=== PATIENT | female | born 1950 | race Caucasian/White ===

== ENCOUNTER → 2017-03-01 | Outpatient (CLI) | payer MEDICARE, OTHER ==
[~2017-03-01] MED LIST: ALPR0.5T PO; ASPI-482 PO; CLOP75TA57 PO; DICL100G18 TP; DOXE10CA PO; DULO60CA6 PO; FLUO20CA16 PO; FURO-69 PO; GABA-586 PO; GEMF600T PO; LIPITOR80 MG PO; METH2.5T PO; METO50TA2 PO; MONT10TA6 PO; NITR0.4T22 SL; POTA20TA12 PO
--- NOTE | 2017-03-01 17:12 | KCIC ---
MRI of the lumbar spine without contrast 03/01/2017 CLINICAL HISTORY: Low back pain which radiates down the right leg. TECHNIQUE: Unenhanced T1-weighted and T2-weighted sagittal and axial and inversion recovery sagittal images of the lumbar spine were obtained. FINDINGS: Comparison study is dated 05/29/2014. Minimal S-shaped curvature of the thoracolumbar spine is seen. Mild anterolisthesis of L3 in relation L4 is noted. Degenerative signal changes are seen involving all the disks of the lumbar spine. Degenerative signal changes are seen within the marrow surrounding these discs. Marked loss of height of the L4-5 disc is noted. The conus medullaris is normal in morphology, position, and signal characteristics. At the L1-2 and L2-3 disc spaces there are minimal to mild generalized disc bulges. Degenerative changes are seen involving the facet joints bilaterally. There is mild ligamentum flavum hypertrophy bilaterally. These findings do not result in significant central spinal canal or neural foraminal stenosis. At the L3-4 disc space there is a mild to moderate generalized disc bulge. This is eccentric to the left. Degenerative changes are seen involving the facet joints bilaterally. There is mild to moderate ligamentum flavum hypertrophy bilaterally. There is prominence of the posterior epidural fat. These findings when combined result in mild central spinal canal stenosis. No neural foraminal stenosis is seen. At the L4-5 disc space there is a mild generalized disc bulge. This is eccentric to the right. Degenerative changes are seen involving the facet joints bilaterally. There is mild ligamentum flavum hypertrophy bilaterally. These findings when combined do not result in significant central spinal canal stenosis. Mild right neural foraminal stenosis is seen. The left neural foramen is patent. At the L5-S1 disc space there is a mild generalized disc bulge. Degenerative changes are seen involving the facet joints bilaterally. There is mild ligamentum flavum hypertrophy bilaterally. These findings when combined do not result in significant central spinal canal or neural foraminal stenosis. Since the previous examination there has been no significant interval change. IMPRESSION: The changes of degenerative disc disease are seen throughout the lumbar spine. These findings result in mild central spinal canal stenosis at L3-4. Mild right neural foraminal stenosis is seen at L4-5. Electronically signed by: Murray Dubose MD (03/01/2017 5:09 PM) [facility]
== END | disposition home or self-care (01) ==
LOC: KCIC MRI 14:04
PROVIDERS: ATTEND Family Medicine
DX: M51.36 Other intervertebral disc degeneration, lumbar region (principal); M48.06 Spinal stenosis, lumbar region; M99.53 Intervertebral disc stenosis of neural canal of lumbar region
CPT/HCPCS: 72148

== ENCOUNTER → 2018-08-21 | Outpatient (CLI) | payer MEDICARE, OTHER ==
[~2018-08-21] MED LIST changes: -GABA-586 PO; +GABA300C18 PO; -METO50TA2 PO; +METO50TA6 PO
--- NOTE | 2018-08-21 15:58 | KCIC ---
MR of the left ankle Indication: Pain and difficulty walking at the left ankle. Fell 3 months ago. Lateral and posterior swelling. Generalized pain. Comparison: None are available Technique: Standard multiplanar sequences are obtained. FINDINGS: Artifact: No significant image degradation. Lateral: Peroneal tendons: Intact, no dislocation Lateral collateral ligaments: * Anterior talofibular ligament: Poorly visualized * Calcaneofibular ligament: Poorly seen * Posterior talofibular ligament: Poorly seen Tibiofibular syndesmosis: Anterior inferior tibiofibular ligament is intact. Tibiofibular syndesmosis is intact. Medial: Posterior tibial tendon: Intact Flexor digitorum longus and hallucis tendons: Intact Medial ligaments: Scarring of the deep deltoid ligament fibers. Anterior: Anterior tibial tendon: Intact Extensor hallucis longus tendon: Intact Extensor digitorum longus tendon: Intact Posterior: Achilles tendon: Intact Plantar aponeurosis: Small enthesophyte at the attachment. No acute plantar fasciitis. Subtalar joints: Patent Tarsal sinus: Abnormal replacement of the normal fatty signal with fibrosis and fluid. Subchondral marrow edema at the roof and floor with cysts. Talar Dome: Intact Bones: No significant lesion or acute fracture Fluid: Trace fluid at the tibiotalar joint, and within the subcutaneous talar joint/tarsal sinus. Joints: Generalized primary osteoarthritis. Soft tissues: Unremarkable Impression: 1. Lateral collateral ligaments are poorly seen compatible with chronic tears. 2. Scarring of the deep fibers of the deltoid ligament. 3. Disruption of the tarsal sinus, appears chronic, with reactive changes at the tarsal roof and calcaneal floor. Electronically signed by: Schuyler Canseco MD (08/21/2018 3:54 PM) [facility]
--- NOTE | 2018-08-21 16:36 | KCIC ---
MR of the left knee Indication: Left knee pain after a fall 3 months ago. Swelling. Painful walking. Comparison: None are available. Technique: The standard multiplanar sequences are obtained. FINDINGS: Artifact: No significant image degradation. Medial meniscus:Intact. Lateral meniscus: Degenerative tear, particularly at the anterior horn. Anterior cruciate ligament: Irregular and poorly defined, no definite through and through rupture or displacement however. No Pivot shift bone injuries. Posterior cruciate ligament: Intact Medial collateral ligament: Intact. Lateral structures: * Iliotibial band: Intact. * Lateral collateral ligament: Intact. * Biceps femoris tendon: Intact * Popliteus tendon attachment: Intact Extensive mechanism: * Patellar tendon: Intact * Quadriceps tendon: Intact * Retinacular structures: Intact Fluid: Moderate joint effusion. Small Zaragoza's cyst. Intra-articular bodies: None visualized Joint compartments * patellofemoral joint: Degenerative changes with severe chondromalacia * medial compartment: Severe degenerative changes with full-thickness chondral loss. * lateral compartment: Severe degenerative changes with full-thickness cartilage loss Bones: No significant lesion or acute fracture. Soft tissue: Unremarkable Impression: 1. Lateral meniscal tear. 2. Severe primary osteoarthritis. 3. Anterior cruciate ligament is poorly defined, may be due to degeneration. Tear is considered unlikely, unless there is clinical instability. Electronically signed by: Schuyler Canseco MD (08/21/2018 4:32 PM) [facility]
--- NOTE | 2018-08-21 16:47 | KCIC ---
MR of the left foot HISTORY: Left foot pain, difficulty walking, fell 3 months ago. TECHNIQUE: Routine multiplanar sequences are obtained. FINDINGS: Generalized primary osteoarthritis. Severe primary osteoarthritis at the first MTP joint with hallux valgus. Advanced degenerative changes also seen at the tarsometatarsal joints. No evidence of acute fracture or aggressive bone destruction. The Lisfranc ligament complex components are poorly defined with some increased signal, compatible with degeneration or sprain. No definite disruption. No significant tarsometatarsal joint subluxation. Visualized tendons demonstrate no acute disruption or significant tendon sheath fluid. No abnormal soft tissue fluid collection. No significant joint effusion. IMPRESSION: 1. Severe primary osteoarthritis. 2. Sprain or degeneration of Lisfranc ligament complex, without evidence of tarsometatarsal subluxation. 3. Refer to separate MR ankle for findings at the hindfoot. Electronically signed by: Schuyler Canseco MD (08/21/2018 4:43 PM) [facility]
== END | disposition home or self-care (01) ==
LOC: KCIC MRI 13:55
PROVIDERS: ATTEND Physician Assistant
DX: M19.072 Primary osteoarthritis, left ankle and foot (principal); S83.282A Other tear of lateral meniscus, current injury, left knee, initial encounter; M71.22 Synovial cyst of popliteal space [Baker], left knee; X58.XXXA Exposure to other specified factors, initial encounter; Y93.89 Activity, other specified; Y92.89 Other specified places as the place of occurrence of the external cause; Y99.8 Other external cause status
CPT/HCPCS: 73718; 73721

== ENCOUNTER → 2018-12-18 | Outpatient (CLI) | payer MEDICARE, OTHER ==
[~2018-12-18] MED LIST changes: +ALBU0.63 NEB; +CETI10TA22 PO; +CRESTOR40 MG PO; +ESOM40CA PO; +FLUT1DIS3 IH; +FLUT9.9S NS; +HYDR-2763 PO; +INSU100C4 SQ; +INSU100I13 SQ; +LIRA0.6P2 SQ; +METF500T16 PO; +PROAIR RESPICL90 MCG IH
--- NOTE | 2018-12-19 17:06 | PATHOLOGY ---
[facility] Accession Number: [id number] . 01 Material submitted: . breast - LEFT BREAST BIOPSY, 8:00, 8CFN. Modifiers: left, 8:00 . 01 Clinical history: . Left breast mass 8 OC 8cmfn (1.3cm) . 02 Diagnosis: Breast tissue, left breast mass 8:00 needle biopsies: - INVASIVE DUCTAL CARCINOMA, HIGH GRADE. SEE COMMENT. . (JPM:preeti; 12/19/2018) QMS/12/19/2018 . 02 Comment: Sections of the left breast mass at 8:00 needle biopsies reveal an invasive mammary carcinoma. The tumor cells are generally present in solid nests and cords and show little tubule formation. The tumor cells show moderate to focal marked nuclear pleomorphism. Mitotic figures are present but difficult to differentiate from pyknotic degenerating nuclei. The invasive carcinoma measures up to 1.3 cm in greatest dimension on the glass slide. The findings are supportive of the diagnosis of an invasive high grade ductal carcinoma. The case is also examined by Dr. Trujillo, who concurs with the diagnosis. Breast prognostic studies will be obtained, the results of which will be reported separately. (JPM:preeti; 12/19/2018) . 02 Electronically signed: . Jaswant Sosa MD, Pathologist NPI- [id number] . 01 Gross description: . The specimen is received in formalin, labeled "Lin Box, left breast" and consists of multiple needle cores of yellow fibroadipose tissue measuring between 0.1 cm and 2.0 cm in length and ranging from 0.1-0.3 cm in diameter which are entirely submitted in A1-A3 (A3 aggregate of smaller cores). The specimen was obtained at 1:05 PM on 12/18/2018 and placed in formalin at 1:10 PM. The cold ischemic time is 5 minutes and the total formalin fixation time is greater than 6 hours but less than 72 hours. (SDY; 12/18/2018) SYU/SYU . 02 Pathologist provided ICD-10: C50.912 . 02 CPT . 185027 Specimen Comment: A courtesy copy of this report has been sent to Specimen Comment: [phone], , . Specimen Comment: Report sent to ,DR PAGE / DR FERGUSON Performed at: 01 [facility] [address], [place] [id number] MD Jose Garcia MD Phone: [phone] Performed at: 02 [facility] [address] [place], [place] [id number] MD Jaswant Sosa MD Phone: [phone]
--- NOTE | 2018-12-20 11:39 | RAD ---
Ultrasound-guided left breast biopsy, 12/18/2018: History: Breast nodule Previous imaging demonstrated an irregular hypoechoic nodule with posterior acoustic shadowing at the 8:00 location in the left breast. Under local anesthesia, aseptic conditions and sonographic guidance the [employer] biopsy instrument was passed into the posterior aspect of this nodule via a medial approach. Multiple 12-gauge vacuum-assisted core samples were obtained. A biopsy marker was then deposited at the biopsy site. The biopsy instrument was removed and hemostasis obtained. Two-view postprocedural digital mammograms were then obtained to document position of the biopsy marker which lies along the medial margin of the biopsied lesion. The patient tolerated the procedure well and left the department in good condition. Note: The subsequent pathology report indicated the presence of invasive ductal carcinoma. This is considered to be a concordant finding. Note: The findings were called to personnel in Dr. Dee's office at 11:30 AM on 12/20/2018.
== END | disposition home or self-care (01) ==
LOC: US 12:22
PROVIDERS: ATTEND Surgery
DX: C50.312 Malignant neoplasm of lower-inner quadrant of left female breast (principal)
CPT/HCPCS: 19083; 77065; 88305; 88361; C1713; 19081; 76942

== ENCOUNTER 2019-01-08 08:51 | Inpatient (IN) | payer MEDICARE, OTHER ==
[2019-01-08] VITALS (7 sets, daily range): BP systolic 96–153; BP diastolic 42–78
[~2019-01-08] VITALS: Ht 154.9 cm; Wt 102.1 kg
[~2019-01-08 08:51] MED LIST changes: +IV RINGERS,LACTATED 1000ML 1,000 ML IV SCH; +LIDOCAINE 1% PF 2 ML VIAL. ID PRN; +MORPHINE SULFATE 2 MG/ML VIAL. IV PRN; +ONDANSETRON PF 4 MG/2 ML VIAL. IV PRN; +PROCHLORPERAZINE 10 MG/2 ML VIAL. IV PRN; +fentaNYL PF VIAL 100 MCG/2 ML VIAL IV PRN
[2019-01-08] MEDS ORDERED: ISOSULFAN BLUE 50 MG/5 ML VIAL. SQ ONE (09:59)
[2019-01-08] MEDS ORDERED: LIDOCAINE WITH 8.4% SOD BICARB 3 ML DISP.SYRIN. INJ ONE (10:15)
[2019-01-08] MEDS ORDERED: LIDOCAINE 2% PF 5 ML VIAL. ONE (10:36)
[2019-01-08] MEDS ORDERED: fentaNYL PF VIAL 100 MCG/2 ML VIAL ONE ×2 (10:36→13:28)
[2019-01-08] MEDS ORDERED: MIDAZOLAM HCL/PF 2 MG/2 ML VIAL. ONE (10:36)
[2019-01-08] MEDS ORDERED: PROPOFOL 20 ML IV ONE (10:36)
[2019-01-08] MEDS ORDERED: ceFAZolin 2GM PREMIX 2 GM/50 ML BAG IV ONE (11:00)
[2019-01-08] MEDS ORDERED: SUCCINYLCHOLINE 200 MG/10 ML VIAL. ONE (11:20)
[2019-01-08] MEDS ORDERED: FAMOTIDINE 20 MG/2 ML VIAL ONE (11:45)
--- NOTE | 2019-01-08 12:12 | RAD ---
Left breast radionuclide sentinel node localization, 01/08/2019: HISTORY: Left breast cancer Under aseptic conditions and utilizing ethyl chloride spray for topical anesthesia a total of 1 mCi of filtered technetium 99m sulfur colloid mixed with a small amount of 0.5 percent buffered lidocaine was injected subdermally in the left periareolar region in 4 divided doses. No imaging was performed. The patient was sent to surgery in good condition. Electronically signed by: Freedom Moore MD (01/08/2019 12:09 PM) [facility]
[2019-01-08] MEDS ORDERED: SEVOFLURANE > 120 MINUTES. IH ONE (12:49)
[2019-01-08] MEDS ORDERED: SEVOFLURANE 61 TO 120 MINUTES. IH ONE (12:49)
[2019-01-08] MEDS ORDERED: HYDROcodone/APAP 7.5/325MG 1 TAB TABLET PO PRN (13:30)
[2019-01-08] MEDS ORDERED: HYDROmorphone 2 MG/ML VIAL IV PRN (13:30)
[2019-01-08] MEDS ORDERED: diphenhydrAMINE HCL 25 MG CAPSULE PO PRN (13:30)
[2019-01-08] MEDS: fentaNYL PF VIAL 100 MCG/2 ML VIAL IV PRN ×2 (13:30→13:48)
[2019-01-08] MEDS ORDERED: 0.9 % SODIUM CHLORIDE 10 ML DISP.SYRIN. IV PRN (13:30)
[2019-01-08] MEDS ORDERED: HYDROcodone/APAP 5/325MG 1 TAB TABLET PO PRN (13:30)
[2019-01-08] MEDS ORDERED: NON FORMULARY ITEM (Albuterol Sulfate (Proair Respiclick) 1 PUFF) IH PRN (13:30)
[2019-01-08] MEDS ORDERED: ONDANSETRON PF 4 MG/2 ML VIAL. IV PRN (13:30)
--- NOTE | 2019-01-08 13:34 | PDOC ---
BRIEF OPERATIVE NOTE Date: January 08, 2019 Pre-Op Diagnosis invasive carcinoma left breast Post-Op Diagnosis same Procedure Performed left simple mastectomy, SLN biopsy times three Surgeon Luiz Research Worker Kitchen Jessica PEREIRA, Telma DIAZ Anesthesia Type: General (LMA) Blood Loss 25cc IV Fluid 450cc Specimens Obtained left breast, SLN's times three Findings negative SLN Complications none Operative Note Wk # [id number] JASON PAGE MD January 08, 2019 13:34
--- NOTE | 2019-01-08 13:42 | OP ---
DATE OF SURGERY: 01/08/2019 PREOPERATIVE DIAGNOSIS: Biopsy proven invasive carcinoma, left breast. POSTOPERATIVE DIAGNOSIS: Biopsy proven invasive carcinoma, left breast. PROCEDURE: 1. Left simple mastectomy. 2. Left axillary sentinel lymph node biopsy x 3. SURGEON: Fuentes Page MD ASSISTANTS: KELLI Narvaez and EMILY Cedeno. ANESTHESIA: General LMA. ESTIMATED BLOOD LOSS: 25 mL. INTRAVENOUS FLUIDS: 450 mL. INDICATIONS: The patient is a 68-year-old lady with biopsy-proven carcinoma of the left breast, brought for mastectomy. DESCRIPTION OF PROCEDURE: The patient went to the nuclear medicine suite, was injected for sentinel node location and brought to the OR where she was given a general LMA. The left breast, arm and chest were prepped and draped in usual sterile fashion. A 4 mL of Lymphazurin was injected intradermally in the circumareolar quadrant corresponding to the location of the tumor. Gentle breast massage was carried out for 4 minutes and an elliptical skin incision was outlined with a marking pen to include the nipple areolar complex. Superior skin flap was incised and developed with cautery dissection. We then went up into the axilla where we found 3 blue stained nodes, one of which was "hot." These were harvested and sent to pathology for frozen section. While awaiting those results, the inferior skin flap was incised and developed with cautery dissection and the breast swept off the chest wall from medial to lateral. Intraoperative report of the nodes was negative. When we checked for hemostasis and a correct sponge count was obtained, two drains were placed, the lateral drain in the axilla, the medial drain under the superior skin flap. We again checked for hemostasis and when present and a second sponge count was correct, the wound was closed with interrupted inverted 3-0 Vicryl in the subcutaneous tissue. Subcuticular 4-0 Monocryl for the skin. Sterile dressings applied. The patient awakened from her anesthetic and taken to the recovery room in satisfactory condition. FUENTES PAGE MD DR: IGNACIA/femi JOB#: [id number] / [id number] JARED Johnson MD
[2019-01-08] MEDS ORDERED: ALBUTEROL SULFATE 2.5 MG/3 ML NEBU. NEB PRN (13:45)
[2019-01-08] MEDS: POTASSIUM CL 20MEQ-0.45% NACL 1,000 ML IV SCH (14:21)
[2019-01-08] MEDS ORDERED: ALBUTEROL SULFATE 2.5 MG/3 ML NEBU. NEB SCH (16:00)
[2019-01-08 16:24] LABS: CREATININE 0.7 mg/dL (0.6-1.0); GFR 83.5
--- NOTE | 2019-01-08 16:30 | NUR ---
Assumed pt care at this time. Pt is resting, denies pain, dressing CDI, TANYA drains with scant sanguineous drainage. Meal tray ordered. Call light within reach. Will return to monitor.
[2019-01-08] MEDS ORDERED: PANTOPRAZOLE 40 MG TABLET.DR. PO SCH (18:00)
[2019-01-08] MEDS: INSULIN LISPRO 300 UNITS/3 ML INSULN.PEN. SQ SCH (18:24)
[2019-01-08] MEDS ORDERED: BUDESONIDE 0.5 MG/2 ML NEBU. NEB SCH (20:00)
[2019-01-08] MEDS ORDERED: INSULIN GLARGINE 300 UNITS/3 ML INSULN.PEN. SQ SCH (21:00)
[2019-01-08] MEDS ORDERED: MONTELUKAST SODIUM 10 MG TABLET. PO SCH (21:00)
[2019-01-08] MEDS ORDERED: ATORVASTATIN CALCIUM 40 MG TABLET. PO SCH (21:00)
[2019-01-08] MEDS: DOCUSATE SODIUM 100 MG CAPSULE. PO SCH (21:30)
[2019-01-08] MEDS: METOPROLOL TART IMMED RELEASE 25 MG TABLET. PO SCH (21:31)
[2019-01-08] MEDS: FLUTICASONE 50MCG/NASAL SPRAY 16GM BOTTLE. NS SCH (21:31)
[2019-01-09 03:00] VITALS: BP 142/80
[2019-01-09] MEDS: HYDROcodone/APAP 5/325MG 1 TAB TABLET PO PRN ×2 (04:37→10:58)
[2019-01-09] MEDS: POTASSIUM CL 20MEQ-0.45% NACL 1,000 ML IV SCH (04:42)
[2019-01-09 07:00] VITALS: BP 136/52
[2019-01-09] MEDS ORDERED: metFORMIN 500 MG TABLET PO SCH (08:00)
[2019-01-09] MEDS: METOPROLOL TART IMMED RELEASE 25 MG TABLET. PO SCH (08:32)
[2019-01-09] MEDS: DOCUSATE SODIUM 100 MG CAPSULE. PO SCH (08:33)
[2019-01-09] MEDS: FLUTICASONE 50MCG/NASAL SPRAY 16GM BOTTLE. NS SCH (08:33)
[2019-01-09] MEDS: INSULIN LISPRO 300 UNITS/3 ML INSULN.PEN. SQ SCH ×2 (08:43→11:30)
[2019-01-09] MEDS ORDERED: ENOXAPARIN 40 MG/0.4 ML SYRINGE. SQ SCH (09:00)
[2019-01-09] MEDS ORDERED: FUROSEMIDE 20 MG TABLET PO SCH (09:00)
[2019-01-09] MEDS ORDERED: ASPIRIN ENTERIC COATED 81 MG TABLET.DR. PO SCH (09:00)
[2019-01-09] MEDS ORDERED: CETIRIZINE HCL 10 MG TABLET. PO SCH (09:00)
[2019-01-09] MEDS ORDERED: POTASSIUM CHLORIDE 20 MEQ TABLET.ER. PO SCH (09:00)
[2019-01-09] MEDS ORDERED: NON FORMULARY ITEM (Liraglutide (Victoza 3-Pak) 1.8 MG) SQ SCH (09:00)
[2019-01-09 11:00] VITALS: BP 142/69
--- NOTE | 2019-01-09 11:44 | PDOC ---
DHIRAJ DAVID STEM MOUNTER 01/09/19 1144: SURGICAL PROGRESS NOTE Subjective had some stomach pain earlier after metformin would like to stay until tomorrow Vital Signs Vital Signs Date Time Temp Pulse Resp B/P (MAP) Pulse Ox O2 Delivery O2 Flow Rate FiO2 01/09/19 10:58 16 Room Air 01/09/19 08:32 82 142/80 01/09/19 07:00 98.1 96 98.1 01/09/19 05:37 2.0 I&O Intake and Output 01/09/19 07:00 Intake Total 3070 ml Output Total 325 ml Balance 2745 ml Intake Oral 900 ml IV Total 1210 ml Other 960 ml Output Urine Total 300 ml Estimated Blood Loss 25 ml # Voids 1 General: Alert, Oriented X3, Cooperative, No acute distress Skin: Other (incision to left breast c/d/i, no erythema, drains serosang) Labs Laboratory Tests Test 01/08/19 13:14 01/08/19 15:10 01/08/19 16:51 01/08/19 21:29 Glucose (Fingerstick) 160 mg/dL (70-99) 194 mg/dL (70-99) 236 mg/dL (70-99) Creatinine 0.7 mg/dL (0.6-1.0) Estimated GFR (Cockcroft-Gault) 83.5 Creatine Kinase 67 U/L (26-192) Laboratory Tests Test 01/08/19 13:14 01/08/19 15:10 01/08/19 16:51 01/08/19 21:29 Glucose (Fingerstick) 160 mg/dL (70-99) 194 mg/dL (70-99) 236 mg/dL (70-99) Creatinine 0.7 mg/dL (0.6-1.0) Estimated GFR (Cockcroft-Gault) 83.5 Creatine Kinase 67 U/L (26-192) Assessment/Plan drain teaching will review with JASON Li MD 01/09/19 1212: SURGICAL PROGRESS NOTE Assessment/Plan doing well home today f/u next week DHIRAJ DAVID APRN January 09, 2019 11:44 JASON PAGE MD January 09, 2019 12:19
--- NOTE | 2019-01-09 12:23 | PDOC3 ---
Discharge Summary Visit Information Date of Admission: January 08, 2019 Date of Discharge: January 09, 2019 Admitting Diagnosis Comment: invasive carcinoma left breast Final Diagnosis same Brief Hospital Course Allergies Allergies Coded Allergies Type Severity Reaction Last Updated Verified Sulfa (Sulfonamide Antibiotics) Allergy Intermediate 01/08/19 Yes lisinopril Allergy Intermediate Rash 01/07/19 Yes moxifloxacin Allergy Intermediate Rash 01/07/19 Yes cephalexin Adverse Reaction Intermediate SEVERE ABDOMINAL CRAMPS 01/07/19 Yes hydromorphone Adverse Reaction Intermediate EXTREME NOT GOOD TASTE AND SMELL 01/07/19 Yes tramadol Adverse Reaction Intermediate SEIZURES 01/07/19 Yes valsartan Adverse Reaction Intermediate CHEST PAIN 01/07/19 Yes Vital Signs Vital Signs Date Time Temp Pulse Resp B/P (MAP) Pulse Ox O2 Delivery O2 Flow Rate FiO2 01/09/19 11:58 16 Room Air 01/09/19 11:00 98.1 82 142/69 (93) 96 98.1 01/09/19 05:37 2.0 Lab Results Laboratory Tests Test 01/08/19 13:14 01/08/19 15:10 01/08/19 16:51 01/08/19 21:29 Glucose (Fingerstick) 160 mg/dL (70-99) 194 mg/dL (70-99) 236 mg/dL (70-99) Creatinine 0.7 mg/dL (0.6-1.0) Estimated GFR (Cockcroft-Gault) 83.5 Creatine Kinase 67 U/L (26-192) Test 01/09/19 11:07 Glucose (Fingerstick) 128 mg/dL (70-99) Laboratory Tests Test 01/08/19 13:14 01/08/19 15:10 01/08/19 16:51 01/08/19 21:29 Glucose (Fingerstick) 160 mg/dL (70-99) 194 mg/dL (70-99) 236 mg/dL (70-99) Creatinine 0.7 mg/dL (0.6-1.0) Estimated GFR (Cockcroft-Gault) 83.5 Creatine Kinase 67 U/L (26-192) Test 01/09/19 11:07 Glucose (Fingerstick) 128 mg/dL (70-99) Brief Hospital Course Ms. Box is a 69 old [sex] who presented with [ ] Discharge Information Condition at Discharge: Stable Follow Up: As Needed Disposition/Orders: D/C to Home Scheduled Aspirin (Aspir 81) 81 Mg Tablet.dr, 1 TAB PO DAILY, #30 Ref 5 (Reported) Entered as Reported by: KRISTINA ROWAN on 07/20/14 1104 Last Taken: Unknown Dose on 01/01/19 Last Action: Continued on 01/08/19 1324 by JASON PAGE Cetirizine Hcl (Zyrtec) 10 Mg Tablet, 2 TAB PO DAILY for ALLERGY, #30 Ref 2 (Reported) Entered as Reported by: ADELFO JASON on 01/07/19 1619 Last Taken: Unknown Dose on 01/08/19 0645 Last Action: Continued on 01/08/191323 by JASON PAGE Clopidogrel Bisulfate (Plavix) 75 Mg Tablet, 1 TAB PO DAILY, #90 Ref 1 (Reported) Entered as Reported by: KRISTINA ROWAN on 07/20/14 1104 Last Action: HELD on 01/08/191323 by JASON PAGE Esomeprazole Magnesium (Nexium Capsule) 40 Mg Capsule.dr, 1 CAP PO QEVNG for GERD, #30 Ref 5 (Reported) Entered as Reported by: ADELFO JASON on 01/07/19 1618 Last Taken: Unknown Dose on 01/07/19 Last Action: Converted on 01/08/191323 by JASON PAGE Fluticasone Propionate (Flonase Allergy Relief) 9.9 Ml [place].susp, 2 SPRAYS NS BID for ALLERGY, (Reported) Entered as Reported by: ADELFO JASON on 01/07/19 162 Last Taken: Unknown Dose on 01/07/19 Last Action: Converted on 01/08/19 132 by JASON PAGE Fluticasone/Salmeterol (Advair 250-50 Diskus) 1 Each Disk.w.dev, 1 PUFF IH BID for ASTHMA/COPD, #3 Ref 3 (Reported) Entered as Reported by: ADELFO JASON on 01/07/19 1621 Last Taken: Unknown Dose on 01/07/19 Last Action: Converted on 01/08/19 1324 by JSAON PAGE Furosemide (Lasix) 20 Mg Tablet, 1 TAB PO DAILY, #90 Ref 1 (Reported) Entered as Reported by: KRISTINA ROWAN on 07/20/14 1104 Last Taken: Unknown Dose on 01/06/19 Last Action: Continued on 01/08/19 1324 by JASON PAGE Insulin Aspart (Novolog) 100 Unit/1 Ml Cartridge, 15 UNIT SQ TIDAC for DIABETES, (Reported) Entered as Reported by: ADELFO JASON on 01/07/19 1622 Last Taken: Unknown Dose on 01/07/19 Last Action: Converted on 01/08/19 1324 by JASON PAGE Insulin Glargine,Hum.rec.anlog (Lantus Solostar) 100 Unit/1 Ml Insuln.pen, 25 UNIT SQ QHS for DIABETES, #15 Ref 3 (Reported) Entered as Reported by: ADELFO JASON on 01/07/19 1622 Last Taken: Unknown Dose on 01/07/19 Last Action: Continued on 01/08/19 1324 by JASON PAGE Liraglutide (Victoza 3-Clarence) 0.6 Mg/0.1 Ml Pen.injctr, 1.8 MG SQ DAILY for DIABETES, #9 Ref 3 (Reported) Entered as Reported by: ADELFO JASON on 01/07/19 1624 Last Taken: Unknown Dose on 01/07/19 Last Action: Converted on 01/08/19 1324 by JASON PAGE Metformin Hcl (Metformin Hcl) 500 Mg Tablet, 500 MG PO DAILYWBKFT for ANTI- DIABETIC, Ref 0 (Reported) Entered as Reported by: ADELFO JASON on 01/07/19 1617 Last Taken: Unknown Dose on 01/07/19 Last Action: Converted on 01/08/19 1324 by JASON PAGE Metoprolol Tartrate (Metoprolol Tartrate) 50 Mg Tablet, 1.5 TAB PO BID for HYPERTENSION, #60 Ref 5 (Reported) Entered as Reported by: KRISTINA ROWAN on 07/20/14 1104 Last Taken: Unknown Dose on 01/08/19 0645 Last Action: Continued on 01/08/19 1324 by JASON PAGE Montelukast Sodium (Singulair Tablet) 10 Mg Tablet, 1 TAB PO QHS for ASTHMA/COPD, #90 Ref 1 (Reported) Entered as Reported by: KRISTINA ROWAN on 07/20/14 1104 Last Taken: Unknown Dose on 01/07/19 Last Action: Converted on 01/08/19 1324 by JASON PAGE Potassium Chloride (Potassium Chloride) 20 Meq Tab.er.prt, 1 TAB PO DAILY for SUPPLEMENT, #180 Ref 3 (Reported) Entered as Reported by: KRISTINA ROWAN on 07/20/14 1104 Last Action: Continued on 01/08/19 1324 by JASON PAGE Rosuvastatin Calcium (Crestor) 40 Mg Tablet, 1 TAB PO QHS for HIGH CHOLESTEROL, #30 Ref 5 (Reported) Entered as Reported by: ADELFO JASON on 01/07/19 1616 Last Taken: Unknown Dose on 01/07/19 Last Action: Converted on 01/08/191323 by JASON PAGE Scheduled PRN Albuterol Sulfate (Proair Respiclick) 90 Mcg Aer.pow.ba, 1 PUFF IH PRN Q6HRS PRN for SHORTNESS OF BREATH, (Reported) Entered as Reported by: ADELFO JASON on 01/07/19 1619 Last Taken: Unknown Dose on 01/01/19 Last Action: Converted on 01/08/191323 by JASON PAGE Albuterol Sulfate (Albuterol Sulfate Neb Soln) 0.63 Mg/3 Ml Vial.neb, 1 VIAL NEB PRN Q6HRS PRN for SHORTNESS OF BREATH, #150 Ref 1 (Reported) Entered as Reported by: ADELFO JASON on 01/07/19 1620 Last Taken: Unknown Dose on 11/08/18 Last Action: Converted on 01/08/191323 by JASON PAGE Hydrocodone/Acetaminophen (Hydrocodone-Acetamin 7.5-325) 1 Each Tablet, 1 EACH PO PRN Q6HRS PRN for PAIN, (Reported) Entered as Reported by: ADELFO JASON on 01/07/19 1625 Last Taken: Unknown Dose on 01/07/19 Last Action: Continued on 01/08/191323 by JASON DAVIS MD January 09, 2019 12:23
--- NOTE | 2019-01-09 12:44 | NUR ---
SW following for discharge planning. Discussed with RN, pt is from home, RN advised no SW needs. Discharge order in for home with self care.
--- NOTE | 2019-01-09 13:13 | NUR ---
Per order placed by Dr. Dee TANYA drain #1 was d/c'd. Patient tolerated procedure well. Also educated patient on stripping and emptying the remaining TANYA drain. Patient verbalized understanding.
--- NOTE | 2019-01-09 15:10 | NUR ---
Discharge instructions and belongings reviewed with patient, verbalized understanding. Patient was escorted out via wheelchair by this RN.
--- NOTE | 2019-01-14 19:06 | PATHOLOGY ---
[facility] Accession Number: [id number] . 01 Material submitted: . PART A: lymph node - LEFT AXILLARY SENTINEL NODE #1 - FS. Modifiers: left, axillary tail, 1 PART B: lymph node - LEFT AXILLARY SENTINEL NODE #2 - FS. Modifiers: left, axillary tail, 2 PART C: lymph node - LEFT AXILLARY SENTINEL NODE #3 -FS. Modifiers: left, axillary tail, 3 PART D: breast - LEFT BREAST. Modifiers: left . 02 Frozen section diagnosis: . INTRAOPERATIVE CONSULTATION WITH FROZEN SECTION (Jaswant Sosa MD) . FSA1. Left axillary sentinel node #1 hot and blue: - Negative for tumor. . FSB1. Left sentinel lymph node #2 blue: - Negative for tumor. . FSC1. Left axillary sentinel node #3 blue: - Negative for tumor. . The results are reported to Dr. Dee in the operating room. . . GROSS DESCRIPTION A. The specimen is received fresh for intraoperative consultation and is designated "left axillary sentinel node hot and blue". This consists of an ovoid-shaped segment of yellow-red fatty tissue showing focal bluish discoloration, measuring up to 2.2 x 1.3 x 0.8 cm. Sectioning reveals a lymph node showing bluish discoloration measuring up to 1.6 cm in greatest dimension. This is submitted in entirety for frozen section as FSA1. The tissue remaining from frozen section submitted for permanent sections as A1. . B. The specimen is received fresh for intraoperative consultation and is designated "#2 left sentinel node blue". This consists of an ovoid segment of yellow-red fatty tissue measuring up to 1.6 x 1.1 x 0.8 cm in greatest dimension. Sectioning reveals a yellow-ford lymph node showing focal pale bluish discoloration, measuring up to approximately 1 cm in greatest dimension. This is submitted entirely for frozen section as FSB1. The tissue remaining from frozen section is submitted for permanent sections as B1. . C. The specimen is received fresh for intraoperative consultation and is designated "left axillary sentinel node blue". This consists of a segment of yellow-fatty tissue measuring up to 1.8 x 1.2 x 0.6 cm in greatest dimension. There is focal bluish discoloration. Sectioning reveals a yellow and blue discolored soft lymph node measuring up to 0.9 cm in greatest dimension. This is submitted for frozen section as FSC1. The tissue remaining from frozen section is submitted for permanent sections as C1. . (JPM:summer; 01/08/2019) . Frozen section performed at [facility], [address] [place] [address]. ERENDIRA/PEDRO . 02 Diagnosis: A. Lymph node, left axillary sentinel node #1 hot and blue: - Negative for tumor. . B. Lymph node, left sentinel lymph node #2 blue: - Negative for tumor. . C. Lymph node, left axillary sentinel node #3 blue: - Negative for tumor. . D. Breast, left simple mastectomy: - INVASIVE DUCTAL CARCINOMA, HIGH GRADE, FORMING AN IRREGULAR INFILTRATIVE TUMOR MASS OF THE LOWER INNER QUADRANT MEASURING UP TO 2.4 CM IN GREATEST DIMENSION. - FOCAL TUMOR INVOLVEMENT OF THE ANTEROINFERIOR MARGIN OF RESECTION. - DEEP MARGIN OF RESECTION NEGATIVE FOR TUMOR. - No lymphovascular tumor invasion identified. - Previous biopsy site changes. - Nipple negative for tumor. - Fibrocystic changes, focal, with focal mild to moderate ductal epithelial hyperplasia. . . . Surgical Pathology Cancer Case Summary . . INVASIVE CARCINOMA OF THE BREAST: Resection . Procedure Simple mastectomy . Specimen Laterality Left . Tumor Site Lower inner quadrant . Tumor Size Greatest dimension of largest invasive focus >1 mm (specify exact measurement) (millimeters): 24 mm . Histologic Type Invasive carcinoma of no special type (invasive ductal carcinoma, not otherwise specified) . Histologic Grade (Ruben Histologic Score) . Glandular (Acinar)/Tubular Differentiation Score 3 (<10% of tumor area forming glandular/tubular structures) . . Nuclear Pleomorphism Score 2-3 . Mitotic Rate Score 2 . Overall Grade Grade 3 (scores of 8 or 9) . Tumor Focality Single focus of invasive carcinoma . Ductal Carcinoma In Situ (DCIS) Not identified . . Margins . Invasive Carcinoma Margins . Positive for invasive carcinoma: Anteroinferior margin: Focal Deep margin is negative for tumor. . DCIS Margins Not applicable (no DCIS in specimen) . Regional Lymph Nodes Uninvolved by tumor cells Number of Lymph Nodes Examined: 3 Number of Sparks Nodes Examined: 3 . Treatment Effect No known presurgical therapy . Lymphovascular Invasion Not identified . Dermal Lymphovascular Invasion Not identified . . Pathologic Stage Classification (pTNM, AJCC 8th Edition) . Primary Tumor (pT) pT2:Tumor >20 mm but =50 mm in greatest dimension . Regional Lymph Nodes (pN) (choose a category based on lymph nodes received with the specimen; immunohistochemistry and/or molecular studies are not required) . . Category (pN) pN0:No regional lymph node metastasis identified or ITCs only# . Microcalcifications Other (specify): Few coarse calcifications identified . Clinical History Palpable mass . Radiologic Finding Mass or architectural distortion . (JPM:mml; 01/14/2019) LBQ/01/14/2019 . 02 Comment: The sentinel lymph nodes are examined at multiple levels. In addition, immunoperoxidase stains for AE1/AE3 are obtained on each of the sentinel lymph nodes and yield the following results: . AE1/AE3 (A1) - Negative for tumor AE1/AE3 (B1) - Negative for tumor AE1/AE3 (C1) - Negative for tumor . There are a total of three sentinel lymph nodes, all of which are negative for tumor. (JPM/db; 01/10/2019) . Special stains performed: AE1/AE3 on A1, B1 and C1 . 02 Electronically signed: . Jaswant Sosa MD, Pathologist NPI- [id number] . 01 Gross description: . A-C. Please see frozen section gross description dictated by the pathologist located under the Frozen Section part of this report. . D. The specimen is received in formalin, labeled "Lin Box, left breast" and consists of a 1286 Gram simple mastectomy specimen oriented with a suture at 9:00. The breast tissue measures 21.6 cm L-M, 17.3 cm S-I, 5.1 cm A-P with an anterior skin ellipse (23.4 x 16.0 cm). The skin ellipse displays an everted areolar complex measuring 6.3 x 4.5 cm. Superior is inked blue, inferior green, and posterior black. It is sectioned from medial to lateral and placed in formalin for overnight fixation. ([facility]; 01/08/2019) . After overnight fixation a solid white-ford mass is identified in the lower inner quadrant (approximate 8 o'clock position) measuring 2.4 x 2.0 x 1.1 cm. The mass extends from the margins as follows: 0.6 cm posterior, greater than 8 cm superior, 0.2 cm inferior, and 5 cm from nipple and shows adjacent biopsy changes. The rest of the parenchyma consists of approximately 10% fibrous breast tissue and no additional masses or lesions. [employer] sections are submitted as follows: . D1: Nipple D2: Mass with biopsy changes approaching inferior margin D3-D6: Additional mass D7: Nearest posterior margin, perpendicular D8: Additional lower inner quadrant D9: Upper inner quadrant D10: Upper outer quadrant D11: Lower outer quadrant D12: Deep to nipple . The specimen was collected on 01/08/2019 with no time in formalin provided. The cold ischemic time is unknown and the time out of formalin is 11:50 PM on 01/09/2019. (SDY; 01/09/2019) SYU/SYU . 02 Pathologist provided ICD-10: C50.912 . 02 CPT . 489731, 689084, 750869, 048919, 613725, [id number], [id number], [id number] Specimen Comment: A courtesy copy of this report has been sent to Specimen Comment: [phone], . Specimen Comment: Report sent to / DR FERGUSON Performed at: 01 [facility] [address] [facility] [address], [place] [id number] MD Jose Garcia MD Phone: [phone] Performed at: 02 [facility] [address], [place] [id number] MD Jaswant Sosa MD Phone: [phone]
== END 2019-01-09 15:30 | disposition home or self-care (01) | DRG 580 ==
LOC: SURG 08:51 → 4 NORTH 13:24
PROVIDERS: ADMIT Surgery; ATTEND Surgery
PROC: 07B60ZX Excision of Left Axillary Lymphatic, Open Approach, Diagnostic (ICD-10-PCS; 2019-01-08)
PROC: 0HTU0ZZ Resection of Left Breast, Open Approach (ICD-10-PCS; principal; 2019-01-08 11:00)
DX: C50.912 Malignant neoplasm of unspecified site of left female breast (principal); Z68.41 Body mass index [BMI] 40.0-44.9, adult; Z88.6 Allergy status to analgesic agent; Z88.1 Allergy status to other antibiotic agents; Z88.5 Allergy status to narcotic agent; Z88.2 Allergy status to sulfonamides; Z88.8 Allergy status to other drugs, medicaments and biological substances; J44.9 Chronic obstructive pulmonary disease, unspecified; E66.9 Obesity, unspecified
CPT/HCPCS: 36415; 38792; 82550; 82565; 82962; 88307; 88331; 88342; 94760; 96374; A7015; A9541; J0330; J0696; J1170; J1650; J1815; J2001; J2250; J2704; J3010; J3490; Q9968

== ENCOUNTER → 2019-02-11 | Outpatient (CLI) | payer MEDICARE, OTHER ==
[~2019-02-11] MED LIST changes: -IV RINGERS,LACTATED 1000ML 1,000 ML IV SCH; -LIDOCAINE 1% PF 2 ML VIAL. ID PRN; +MONT10TA49 PO; -MONT10TA6 PO; -MORPHINE SULFATE 2 MG/ML VIAL. IV PRN; -ONDANSETRON PF 4 MG/2 ML VIAL. IV PRN; -PROCHLORPERAZINE 10 MG/2 ML VIAL. IV PRN; -fentaNYL PF VIAL 100 MCG/2 ML VIAL IV PRN
[2019-02-11] MEDS: IOHEXOL 240 MG/ML 50ML VIAL. PO ONE (09:00)
[2019-02-11] MEDS: IOHEXOL 300 MG/ML 100ML VIAL. IV ONE (09:00)
[2019-02-11 09:06] LABS: CREATININE 0.7 mg/dL (0.6-1.0); GFR 83.2
--- NOTE | 2019-02-11 13:15 | RAD ---
CT of the chest, abdomen, and pelvis 02/11/2019 INDICATION: History of breast cancer. Staging exam. COMPARISON STUDY: CT of the abdomen and pelvis July 20, 2014 Technique: Multidetector CT imaging of the chest, abdomen, and pelvis was performed following the administration of IV contrast. FINDINGS: Heart size is normal. No pericardial effusion is identified. No pathologically enlarged mediastinal adenopathy is seen. Atherosclerotic vascular calcification noted. The lungs are clear without evidence of pneumothorax, pleural effusion, or focal consolidative infiltrate. No pulmonary masses are identified. Small nonspecific lymph nodes are seen in the bilateral axillary regions, most likely reactive. There is a mildly rim-enhancing fluid collection in the left breast with overlying skin thickening. Findings most likely reflect recent surgery with probable seroma or resolving hematoma. Collection measures approximately 11 cm x 3 cm x 6 cm. Note that the sterility of this collection cannot be assessed with CT. The liver and gallbladder are unremarkable. The spleen, pancreas, and adrenal glands are unremarkable. The bilateral kidneys are grossly unremarkable. There is no bowel obstruction. No evidence of acute inflammatory change involving the bowel is identified. The bladder is grossly unremarkable. Uterus and adnexa demonstrate no gross abnormalities. Scattered small mesenteric lymph nodes are seen, none of which appear to be pathologically enlarged. No evidence of acute osseous abnormality involving the abdomen or pelvis is identified. Asymmetrical sacroiliac joint sclerosis is seen, left greater than right. Gas of the joint space noted. Asymmetrical bilateral processes include osteoarthritis as well as rheumatologic conditions such as gout, psoriatic arthritis, and reactive arthritis. The appearance is slightly more advanced since CT from July 2014. Impression: 1. No evidence of metastatic disease involving the chest, abdomen, or pelvis. 2. Skin thickening and subcutaneous fluid collection in the left breast likely most likely postoperative in nature either representing seroma or resolving hematoma. Correlate clinically. 3. Other chronic changes as described above CT DOSING PQRS STATEMENT: One or more of the following individualized dose reduction techniques were utilized for this examination: 1. Automated exposure control 2. Adjustment of the mA and/or kV according to patient size 3. Use of iterative reconstruction technique Electronically signed by: Josue Ybarra MD (02/11/2019 1:12 PM) [id number]
--- NOTE | 2019-02-11 17:18 | RAD ---
Whole body bone scan Clinical indications: Breast cancer staging. TECHNIQUE: After IV infusion of 25 mCi of technetium 99m MDP, delayed anterior and posterior planar images of the whole body were performed. COMPARISON: No previous bone scan. FINDINGS: Bilateral renal function is evident. There is degenerative activity seen involving the shoulders and sternoclavicular joints bilaterally. There is degenerative activity seen involving the knees and feet bilaterally. There is degenerative activity seen involving both SI joints more so on the left side. There is mild activity seen involving the upper and midthoracic spine and L5. This activity is more indeterminate. IMPRESSION: Indeterminate activity involving the upper midthoracic spine and L5 of the lumbar spine. Patient had a CT study of the contrast and abdomen and pelvis dated February 11, 2019. No compression fracture or lytic process is seen in these areas. There is degenerative disc space narrowing with prominent endplate spurring at L4-5 which would account for the bone scan finding. In addition, there is degenerative disc space narrowing and endplate spurring throughout the mid and upper thoracic spine which would account for the bone scan finding. In addition, the CT study demonstrated osteoarthritis of both SI joints more severely involving the left SI joint which accounts for the bone scan finding as well. Therefore, there are no findings indicative of osseous metastatic disease. All the findings discussed above are degenerative in nature. Electronically signed by: Marciano Beckham MD (02/11/2019 5:16 PM) [place] [id number]
== END | disposition home or self-care (01) ==
LOC: NM 09:04
PROVIDERS: ATTEND Internal Medicine Hematology & Oncology
DX: C50.312 Malignant neoplasm of lower-inner quadrant of left female breast (principal); I70.90 Unspecified atherosclerosis; M48.05 Spinal stenosis, thoracolumbar region; Z17.0 Estrogen receptor positive status [ER+]
CPT/HCPCS: 36415; 71260; 74177; 78306; 82565; 84520; A9503; Q9966; Q9967

== ENCOUNTER → 2021-03-04 | Outpatient (CLI) | payer MEDICARE, OTHER ==
[~2021-03-04] MED LIST changes: +ANAS1TAB47 PO; -CETI10TA22 PO; +CETI10TA74 PO; -DICL100G18 TP; +DICL100G54 TP
--- NOTE | 2021-03-04 16:39 | RAD ---
EXAMINATION: NM PET/CT SKULL BASE TO MID THIGH CLINICAL HISTORY: Masses on outside CT in back of the mouth and neck. History of left breast cancer s tatus post mastectomy TECHNIQUE: Approximately 60 minutes following the IV administration of F-18 FDG (15.65 mCi of F-18 FD G), PET and non contrast CT images were acquired from the skull base through th mid thighs. PET image s were reconstructed with and without attenuation correction using attenuation coefficients. CT image s obtained for attenuation correction and anatomic localization, they are not of diagnostic quality a nd are not intended to diagnose disease independently of the PET. - Blood Glucose: 189 mg/dL CT Dose Reduction Employed: One or more of the following individualized dose reduction techniques wer e utilized for this examination: 1. Automated exposure control 2. Adjustment of the mA and/or kV ac cording to patient size 3. Use of iterative reconstruction technique. COMPARISON: CT chest/abdomen/pelvis 09/24/2020 FINDINGS: NECK: Increased soft tissue density along the anterior aspect of the oropharynx at the base of the tongue, slightly asymmetric to the left, measuring up to 1.5 x 2.1 cm (AP x TRV) and demonstrating mild uptak e with Max SUV 4.9 (series 603 image 26). Mildly enlarged level 2A lymph nodes on the left measuring up to 1.6 cm in long axis demonstrating mild uptake with Max SUV 2.6. Multiple additional prominent c ervical lymph nodes throughout the neck without significant uptake. CHEST: Multiple prominent to borderline enlarged mesenteric lymph nodes measuring up to 1 cm in short axis w ith several demonstrating low level uptake, for example a prevascular node on series 603 image 57 and a right lower paratracheal node series 603 image 55 and left hilar nodes. No suspicious FDG avid mas s visualized. Chronic findings in the chest similar to prior study. Postoperative changes related to left mastectomy with similar appearing chronic seroma. ABDOMEN/PELVIS: No suspicious FDG avid focus or FDG avid lymphadenopathy visualized. EXTREMITIES/SKELETON: Diffuse uptake in the spine demonstrating asymmetric increased uptake in the T11-L5 vertebral bodies without definitively visualized osseous destructive lesion on CT, nonspecific. Multilevel degenerativ e changes throughout the spine. Degenerative changes left greater than right SI joints with heterogen eous mineralization in the left posterior ilium. Degenerative changes bilateral hips. Degenerative ch anges bilateral shoulders with bilateral os acromiale. IMPRESSION: FDG avid soft tissue density in the oropharynx as described, possibly originating from the lingual to nsils, and mildly FDG avid cervical lymphadenopathy suspicious for primary cell carcinoma versus meta stases. Multiple prominent borderline enlarged mediastinal lymph nodes demonstrating low level uptake, nonspe cific but possibly reactive. Nonspecific asymmetric increased uptake in the lower thoracolumbar spine as described, possibly degen erative. MRI could be obtained for further evaluation if indicated. Electronically signed by: Pal Garza DO (03/04/2021 4:37 PM) [id number]
== END ==
LOC: PETSC 10:48
PROVIDERS: ATTEND Family Medicine
DX: C50.312 Malignant neoplasm of lower-inner quadrant of left female breast (principal); L04.0 Acute lymphadenitis of face, head and neck
CPT/HCPCS: 78815; A9552